=== PATIENT | male | born 1960 | race Caucasian/White ===

== ENCOUNTER 2021-07-30 14:03 | Emergency (ER) | payer MEDICARE ==
[2021-07-30 14:31] LABS: HEMOGLOBIN 16.7 gm/dl (14.0-17.5); RED BLOOD COUNT 5.27 M/UL (4.20-5.50); WHITE BLOOD COUNT 2.9 K/UL (4.5-11.0)
[2021-07-30 14:56] LABS: BUN/CREATININE RATIO 9 (0-10)
[2021-07-30] MEDS ORDERED: ZOFRAN ODT 4 MG4 MG SL (16:51)
== END 2021-07-30 17:09 | disposition home or self-care (01) ==
LOC: ER1 14:03
PROVIDERS: Physician Assistant
DX: U07.1 COVID-19 (principal); K21.9 Gastro-esophageal reflux disease without esophagitis; I10 Essential (primary) hypertension; E03.9 Hypothyroidism, unspecified; E78.5 Hyperlipidemia, unspecified
CPT/HCPCS: 70450; 80053; 82550; 82553; 83874; 84484; 85025; 93005; 99284; C9113; J1650; J7120; U0003